=== PATIENT | male | born 1985 | race Caucasian/White ===

== ENCOUNTER 2024-08-15 08:20 | Observation (INO) | payer OTHER ==
[2024-08-15 08:32] VITALS: BMI 21.9
[2024-08-15] MEDS ORDERED: ONDANSETRON 4 MG/2 ML VIAL ONE ×2 (09:03→10:23)
[2024-08-15] MEDS: SODIUM CHLORIDE 0.9% 500 ML INFUS.BAG IV ONE (09:17)
[2024-08-15] MEDS: ONDANSETRON 4 MG/2 ML VIAL IVPUSH ONE (09:17)
[2024-08-15 09:21] LABS: ABSOLUTE IMMATURE GRANULOCYTES 0.04 x10^3/uL (0.0-0.031); BASOPHILS # 0.07 x10^3/uL (0.01-0.08); EOSINOPHILS # 0.13 x10^3/uL (0.04-0.54); HEMATOCRIT 48.6 % (40.1-51.0); HEMOGLOBIN 17.1 g/dL (13.7-17.5); MCHC 35.2 g/dl (32.3-36.5); MEAN CELL VOLUME 85.4 fl (79.0-92.2); MEAN PLT VOLUME 13.2 fl (9.4-12.4); MONOCYTE % 12.1 % (5.3-12.2); PLATELET COUNT 175 x10^3/uL (163-337); RDW 11.5 % (12.0-15.6)
[2024-08-15 09:26] LABS: EPI CELLS 7 /uL (0-25.1); HYALINE CASTS 1 /uL (0-3.1); PH,URINE 5.5 (5.0-8.0); URINE APPEARANCE CLEAR; URINE BACTERIA 1 /uL (0-1359); URINE BILIRUBIN 2+ (NEGATIVE); URINE COLOR DK YELLOW; URINE GLUCOSE (UA) NEGATIVE (NEGATIVE); URINE KETONE 2+ (NEGATIVE); URINE LEUK ESTERASE NEGATIVE (NEGATIVE); URINE NITRITE NEGATIVE (NEGATIVE); URINE PROTEIN 2+ (NEGATIVE); URINE WBC 24 /uL (0-25.8)
[2024-08-15 09:28] LABS: URINE RBC 52.9 /uL (0-23.9)
[2024-08-15 09:49] LABS: POTASSIUM 3.2 mmol/L (3.5-5.1)
[2024-08-15 09:53] LABS: CALCIUM 9.8 mg/dL (8.5-10.1)
[2024-08-15 09:54] LABS: ALBUMIN 4.3 g/dl (3.4-5.0); BLOOD UREA NITROGEN 20.1 mg/dL (7-18); MAGNESIUM 2.5 mg/dL (1.8-2.4)
[2024-08-15 09:57] LABS: CREATININE 1.3 mg/dL (0.55-1.3)
[2024-08-15 09:58] LABS: BILIRUBIN,TOTAL 1.6 mg/dL (0.2-1); TOT PROT 8.7 g/dl (6.4-8.2)
[2024-08-15] MEDS ORDERED: POTASSIUM CHLORIDE TABS 20 MEQ TABLET.ER (FP) PO ONE (10:27)
[2024-08-15] MEDS: POTASSIUM CHLORIDE TABS 20 MEQ TABLET.ER (FP) PO ONE (10:31)
[2024-08-15] MEDS: ONDANSETRON *ODT* 4 MG TABLET SL ONE (10:31)
[2024-08-15] MEDS ORDERED: KCL 10 MEQ IVPB 10 MEQ/100 ML INFUS.BAG IVPB ONE (11:19)
[2024-08-15] MEDS ORDERED: PROCHLORPERAZINE INJECTION 10 MG/2 ML VIAL ONE (11:19)
[2024-08-15] MEDS: KCL 10 MEQ IVPB 10 MEQ/100 ML INFUS.BAG IVPB SCH (11:36)
[2024-08-15] MEDS: HALOPERIDOL LACTATE 5 MG/ML IVPUSH ONE (11:37)
[2024-08-15] MEDS: PROCHLORPERAZINE INJECTION 10 MG/2 ML VIAL IVPB ONE (11:37)
[2024-08-15] MEDS ORDERED: PALONOSETRON HCL 0.25 MG/5 ML VIAL IVPUSH PRN (11:42)
[2024-08-15] MEDS ORDERED: diphenhydrAMINE HCL 12.5 MG/5 ML UNIT-DOSE CUPS PO PRN (11:48)
[2024-08-15] MEDS ORDERED: ACETAMINOPHEN 1000 MG/100 ML BAG IVPB PRN (11:51)
[2024-08-15] MEDS ORDERED: TRIMETHOBENZAMIDE HCL 200MG/2ML INJ IM PRN (11:56)
[2024-08-15] MEDS ORDERED: MAG HYDROX/AL HYDROX/SIMETH -MYLANTA- ORAL SUSPENSION PO PRN (12:15)
[2024-08-15] MEDS ORDERED: MAG HYDROX/AL HYDROX/SIMETH 30 ML UNIT-DOSE CUP PO PRN (12:20)
[2024-08-15] MEDS: SODIUM CHLORIDE 1,000 ML IV STA (13:11)
[2024-08-15] MEDS: POTASSIUM CHLORIDE ORAL LIQUID 20 MEQ/15 ML PO ONE (13:44)
[2024-08-15 15:49] LABS: EPI CELLS 2 /uL (0-25.1); HYALINE CASTS 0 /uL (0-3.1); PH,URINE >= 9.0 (5.0-8.0); URINE APPEARANCE CLEAR; URINE BACTERIA 2 /uL (0-1359); URINE BILIRUBIN NEGATIVE (NEGATIVE); URINE COLOR YELLOW; URINE GLUCOSE (UA) NEGATIVE (NEGATIVE); URINE KETONE TRACE (NEGATIVE); URINE LEUK ESTERASE NEGATIVE (NEGATIVE); URINE NITRITE NEGATIVE (NEGATIVE); URINE PROTEIN 1+ (NEGATIVE); URINE RBC 20 /uL (0-23.9); URINE WBC 3 /uL (0-25.8)
[2024-08-16 07:30] LABS: POTASSIUM 3.6 mmol/L (3.5-5.1)
[2024-08-16 07:44] LABS: CALCIUM 9.2 mg/dL (8.5-10.1)
[2024-08-16 07:45] LABS: BLOOD UREA NITROGEN 13.4 mg/dL (7-18)
[2024-08-16 07:46] LABS: ALBUMIN 3.7 g/dl (3.4-5.0)
[2024-08-16 07:48] LABS: CREATININE 1.1 mg/dL (0.55-1.3)
[2024-08-16 07:49] LABS: BILIRUBIN,DIRECT 0.3 mg/dL (0.0-0.2)
[2024-08-16 07:51] LABS: BILIRUBIN,TOTAL 1.1 mg/dL (0.2-1); TOT PROT 7.6 g/dl (6.4-8.2)
[2024-08-16 07:53] LABS: HEMATOCRIT 45.3 % (40.1-51.0); HEMOGLOBIN 15.6 g/dL (13.7-17.5); MCHC 34.4 g/dl (32.3-36.5); MEAN CELL VOLUME 86.8 fl (79.0-92.2); PLATELET COUNT 132 x10^3/uL (163-337); RDW 11.6 % (12.0-15.6)
[2024-08-16] MEDS: POTASSIUM CHLORIDE 20 MEQ in LACTATED RINGERS SOLUTION 1,000 ML IV ONE ×2 (10:29→14:38)
[2024-08-16 11:15] VITALS: RESP 18
[2024-08-16 14:40] VITALS: BP 129/89; PULSE 80; TEMP 98.1
[2024-08-16 15:10] LABS: MAGNESIUM 2.3 mg/dL (1.8-2.4)
[2024-08-16] MEDS ORDERED: LACTOBACILLUS ACIDOPHILUS 1 TABLET PO SCH (22:00)
== END 2024-08-16 17:45 | disposition home or self-care (01) ==
LOC: JER 08:20 → JERBED 11:28 → J4W 13:04
PROVIDERS: ADMIT Student in an Organized Health Care Education/Training Program; ATTEND Internal Medicine
PROC: 3E033GC Introduction of Other Therapeutic Substance into Peripheral Vein, Percutaneous Approach (ICD-10-PCS; principal; 2024-08-15)
PROC: 3E0337Z Introduction of Electrolytic and Water Balance Substance into Peripheral Vein, Percutaneous Approach (ICD-10-PCS; 2024-08-15)
DX: K52.9 Noninfective gastroenteritis and colitis, unspecified (principal); N17.9 Acute kidney failure, unspecified; D72.821 Monocytosis (symptomatic); I45.81 Long QT syndrome; E80.6 Other disorders of bilirubin metabolism; R80.9 Proteinuria, unspecified
CPT/HCPCS: 0241U-QW; 36415; 76705-TC; 76775-TC; 80048; 80053; 80076; 81003; 83690; 83735; 83993; 84100; 85025; 85027; 87045; 87046; 87086; 87338; 87798; 93005; 93010; 96361; 96365; 96366; 96375; 99285-25; G0378; Q0162